=== PATIENT | male | born 2000 | race Caucasian/White ===

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

== ENCOUNTER 2023-03-09 12:40 | Inpatient (IN) | payer OTHER, SELFPAY ==
--- NOTE | 2023-03-09 | ECG_ITS ---
Test Reason : MED CLEARANCE Blood Pressure : / mmHG Vent. Rate : 073 BPM Atrial Rate : 073 BPM P-R Int : 156 ms QRS Dur : 098 ms QT Int : 388 ms P-R-T Axes : 044 047 021 degrees QTc Int : 427 ms Normal sinus rhythm T wave abnormality, consider anterior ischemia Abnormal ECG No previous ECGs available Referred By: Holden Dixon Electronically Signed By:МАРИЯ QUICK MD
--- NOTE | 2023-03-09 12:48 | MHC.CARE ---
This is an [facility] Student Safety Plan per Zainab Das, patient?s counselor with [facility] [phone] Warning Signs for increase in SI/ worsening depression:? Isolating more; difficulty leaving his dorm room; spending more time in his car, which he identifies a space place for him; low desire to communicate with friends/ partner Ways patient will work to remain Safe:? He will not keep belts/ ropes in his living spaces. He has one friend he lists.? 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 Provider does not believe he has a hx of inpatient admissions.? She does not have information pertaining to when/ where his alleged suicide attempt via hanging was.
[2023-03-09 12:50] VITALS: BP 114/68; PULSE 99; RESP 20; TEMP 37.2; O2SAT 98; BMI 25.7
--- NOTE | 2023-03-09 12:51 | ED.PSYCH ---
HPI - Psych General Chief Complaint: Psychiatric Symptoms Stated Complaint: SECTION 12 Time Seen by Provider: 03/09/23 12:43 Source: patient, EMS, RN notes reviewed and old records reviewed Mode of arrival: EMS History of Present Illness HPI Narrative: 23-year-old male with no significant PMHx presenting to ED via EMS on Section 12 from his therapist's office at [facility] for low affect and concerning statements. Per Section 12 patient made statements that he was over it and life was getting harder. Patient with 1 prior SI attempt. History limited as patient agitated and withdrawn, not forthcoming with information. Denies SI/HI at present. Reports THC use. Denies other illicit substances or EtOH. Related Data Allergies Allergy/AdvReac Type Severity Reaction Status Date / Time No Known Allergies Allergy Verified 03/09/23 12:55 Review of Systems Review of Systems: Constitutional: No Fever, No Chills, No Fatigue, No Malaise ENT/Mouth: No Ear Pain, No Nasal Congestion, No sore throat, No Rhinorrhea Cardiovascular: No Chest Pain, No SOB Respiratory: No Cough, No Dyspnea Gastrointestinal: No Nausea, No Vomiting, No Diarrhea, No Constipation, No Abdominal pain Musculoskeletal: No joint pain, No Myalgias, No Joint Swelling Skin: No Skin Lesions, No rash Neuro: No Weakness, No Headache Psych: No Anxiety/Panic, + Depression, No SI/HI/AH/VH, No Social Issues Yes all other systems are reviewed and are negative Constitutional: Constitutional: Reports as per HPI [facility] Past Medical History Attestation statement: The following information was validated with the patient. Source: old records reviewed Social History Social History Advance Directives: No Physical Exam Vital Signs: Vital Signs: Last Vital Signs Temp 99.0 F 03/09/23 12:50 Pulse 99 03/09/23 12:50 Resp 20 03/09/23 12:50 BP 114/68 03/09/23 12:50 Pulse Ox 98 03/09/23 12:50 O2 Del Method Room Air 03/09/23 12:50 BMI result Body Mass Index 25.7 Const: Other: Agitated, pacing, withdrawn General: no acute distress and alert Orientation/consciousness: patient oriented x3 Limitations: no limitations HEENT: Head: Yes normal to inspection and Yes atraumatic Ears: hearing grossly normal bilaterally General nose exam: Normal external nose present Face and sinus: Yes normal facial exam Eyes: General: appearance normal, both eyes and all related structures EOM: EOMs intact bilaterally Neck: Neck: Yes normal visual inspection and Yes no meningeal signs Resp: Effort & Inspection: normal respiratory effort and no respiratory distress Auscultation: clear to auscultation bilaterally Cardio: Rate: regular rate Heart sounds: S1 normal heart sound present and S2 normal heart sound present GI: Inspection: Yes normal to inspection Palpation (GI): Soft to palpation, nontender, no guarding and not rigid Skin: Rashes: no rashes Wounds: no wounds Neuro: General: patient oriented x3, tone normal, moves all extremities, no meningeal signs and CN's II-XI intact bilaterally Cranial nerves: Yes CN's II-XII intact bilaterally Gait exam (Neuro): Normal gait present Extrem: General: Yes normal to inspection Psych: Affect: Hostile affect present Attitude: Guarded attititude/behavior present and Refuses to answer (attititude/behavior) Course Course Course Narrative: 1425--labs reassuring. UA negative. Tox screen positive for THC -COVID and flu negative -patient medically cleared for care team evaluation. Physician observation initiated at 14:26 -1630--[facility] eval Medical Decision Making Medical Decision Making [facility] Narrative: 23-year-old male with no significant PMHx presenting to ED via EMS on Section 12 from his therapist's office at [facility] for low affect and concerning statements. On exam vital signs stable, NAD, nontoxic appearing, agitated/withdrawn, not forthcoming with information. Denies SI/HI at present. Concern for SI vs metabolic/organic causes vs substance abuse. Plan: Labs, tox screen, CARE team consult Please refer to course for remaining clinical decision making, interpretation of labs/imaging results, and discussions with consultants and/or family members. Differential Diagnosis Differential Diagnoses: The differential diagnosis associated with the presentation includes As above Admission/Observation Consideration of admission/observation: Escalation of care including admission/observation considered Consult Healthcare Provider Management of the patient was discussed with: Behavioral Health Provider Lab Data [facility] Lab Attestation statement: I reviewed the patient's lab results. 03/09/23 13:30 03/09/23 13:30 Labs: Lab Results 03/09/23 03/09/23 Range/Units 13:27 13:30 WBC 5.7 (4.8-10.8) X10*3/uL RBC 5.10 (4.60-5.80) X10*6/uL Hgb 15.0 (14.0-18.0) g/dl Hct 44.5 (42.0-52.0) % MCV 87.3 (80.0-98.0) fL MCH 29.4 (27.0-33.0) pg MCHC 33.7 (31.0-36.0) g/dl RDW 12.5 (11.0-16.0) % Plt Count 281 (160-400) X10*3/uL MPV 7.9 L (9.4-12.4) fL Immature Gran % (Auto) 1.1 H (0.0-0.4) % Neut % (Auto) 47.7 (45-73) % Lymph % (Auto) 43.8 H (20-40) % [place] % (Auto) 4.4 (2-11) % Eos % (Auto) 2.6 (0-4) % Baso % (Auto) 0.4 (0-2) % Lymph # (Auto) 2.5 (1.2-4.9) X10*3/uL [place] # (Auto) 0.3 (0.1-1.2) X10*3/uL Eos # (Auto) 0.2 (0.0-0.4) X10*3/uL Baso # (Auto) 0.0 (0.0-0.2) X10*3/uL Abs Immat Gran (auto) 0.06 H (0.00-0.03) X10*3/uL Absolute Neuts (auto) 2.7 (2.0-8.3) x10*3/uL Absolute Nucleated RBC 0.000 (0.0-0.012) X10*3/uL Nucleated RBC % (auto) 0.0 (0.0-0.2) /100WBC Smear Tech's Comments VERIFIED Sodium 141 (135-145) mmol/L Potassium 3.6 (3.3-5.1) mmol/L Chloride 103 (96-108) mmol/L Carbon Dioxide 30 H (22-29) mmol/L Anion Gap 12 (12-20) BUN 14 (9-16) mg/dL Creatinine 1.07 (0.5-1.4) mg/dL Estim Creat Clear Calc 87.8 Estimated GFR > 60 Random Glucose 102 (60-115) mg/dL Calcium 9.6 (8.4-10.2) mg/dL Magnesium 2.1 (1.6-2.6) mg/dL Total Bilirubin 0.2 (0.0-1.0) mg/dL Direct Bilirubin < 0.2 (0.0-0.5) mg/dL AST 35 (5-37) U/L ALT 29 (0-40) U/L Alkaline Phosphatase 51 (39-117) U/L Total Protein 7.7 (6.5-8.0) g/dL Albumin 4.1 (3.5-5.0) g/dL Urine Color Yellow Urine Appearance Cloudy Urine pH 6.5 (5.0-9.0) Ur Specific [place] 1.020 (1.005-1.025) Urine Protein Negative (Neg-Trace) mg/dL Urine Glucose (UA) Negative (Negative) mg/dL Urine Ketones Negative (Negative) mg/dL Urine Blood Negative (Negative) Urine Nitrite Negative (Negative) Ur Leukocyte Esterase Negative (Negative) Salicylates < 5.0 L (15-30) mg/dL Urine Opiates Screen Not Detected (Not Detect) Urine Fentanyl Screen Not Detected (Not Detect) Acetaminophen < 3 (<30) mcg/mL Ur Barbiturates Screen Not Detected (Not Detect) Ur Phencyclidine Scrn Not Detected (Not Detect) Ur Amphetamines Screen Not Detected (Not Detect) U Benzodiazepines Scrn Not Detected (Not Detect) Urine Cocaine Screen Not Detected (Not Detect) U Marijuana (THC) Screen POSITIVE H (Not Detect) COVID-19 (KARSTEN) Negative (Negative) COVID-19 Clin Com See Note Influenza Type A (GREG) Negative (Negative) Influenza Type B (GREG) Negative (Negative) Influenza A & B Note See Note Independent Historian Clinical information obtained from an independent historian. History obtained from or confirmed by: EMS External Record Review External record reviewed: Inpatient record, Office record, Outpatient record, Prior outpatient labs, Prior outpatient radiology, Primary care record and Outside ED record Tests considered The following testing was considered but not selected: As above Social Determinants Patient?s care significantly limited by Social Determinants of Health including: Problems related to primary support group Discharge Plan Discharge Clinical Impression: Depression Patient Disposition: Still a Patient Interventions: [place]-Suicide Risk Severity Scale Last Done: 03/09/23 13:10
--- NOTE | 2023-03-09 13:00 | MHC.CARE ---
Zainab Das ([phone]) therapists from [employer] called, she reports student Ann Hilliard from [facility] is in route to ED for crisis assessment. . She has been treating him for over 1 year. Today he was in session and told her he felt it was time to come to the hospital. She reports patient mood has been steadily declining, his is not sleeping well, reporting suicidal ideation with plan and intent, however will not disclose plan or intent currently. Patient has a history of prior suicide attempt via hanging in his dorm 1 year ago. Patient has been isolating, missing classes, sleep routine is disrupted. Patient has been engaging in safety planning. She has requested clinical have patient sign release to fax [facility] copy of safety plan. Patient also has medication prescriber Ayanna England [phone].
--- NOTE | 2023-03-09 13:29 | PC.NURSE ---
Pt calm and cooperative with blood draw. Whatever I have to do to get out of here.
[2023-03-09 13:46] LABS: Basophils Percent Auto 0.4 % (0-2); Eosinophils Absolute Auto 0.2 X10*3/uL (0.0-0.4); Eosinophils Percent Auto 2.6 % (0-4); Hematocrit 44.5 % (42.0-52.0); Imm Gran Abs Auto 0.06 X10*3/uL (0.00-0.03); Imm Gran Pct Auto 1.1 % (0.0-0.4); Lymphocytes Absolute Auto 2.5 X10*3/uL (1.2-4.9); Lymphocytes Percent Auto 43.8 % (20-40); MANUAL DIFF FLAG SCAN; Mean Corpuscular HGB Conc 33.7 g/dl (31.0-36.0); Mean Corpuscular Hemoglobin 29.4 pg (27.0-33.0); Mean Corpuscular Volume 87.3 fL (80.0-98.0); Mean Platelet Volume 7.9 fL (9.4-12.4); Monocytes Absolute Auto 0.3 X10*3/uL (0.1-1.2); Monocytes Percent Auto 4.4 % (2-11); Neutrophils Absolute Auto 2.7 x10*3/uL (2.0-8.3); Neutrophils Percent Auto 47.7 % (45-73); Platelet Count 281 X10*3/uL (160-400); Red Cell Distribution Width 12.5 % (11.0-16.0); SCAN SMEAR FLAG 1; White Blood Count 5.7 X10*3/uL (4.8-10.8)
[2023-03-09 13:48] LABS: Appearance Urine Cloudy; Color Urine Yellow; Glucose Urine UA Negative (Negative); Leukocyte Esterase Urine Negative (Negative); Nitrite Urine Negative (Negative); PH 6.5 (5.0-9.0); Urine Blood Negative (Negative); Urine Ketones Negative (Negative); Urine Protein Negative (Neg-Trace)
[2023-03-09 13:50] LABS: Amphetamine Screen Urine Not Detected (Not Detect); Barbiturates, Urine Not Detected (Not Detect); Benzodiazepines Screen Urine Not Detected (Not Detect); Cannabinoid Screen Urine POSITIVE (Not Detect); Cocaine Screen Urine Not Detected (Not Detect); Fentanyl, urine Not Detected (Not Detect); Opiate Screen Urine Not Detected (Not Detect); Phencyclidine Screen Urine Not Detected (Not Detect)
[2023-03-09 13:55] LABS: Alanine Aminotransferase 29 U/L (0-40); Albumin Level 4.1 g/dL (3.5-5.0); Alkaline Phosphatase 51 U/L (39-117); Anion Gap 12 (12-20); Aspartate Amino Transferase 35 U/L (5-37); Bilirubin Direct < 0.2 mg/dL (0.0-0.5); Bilirubin Total 0.2 mg/dL (0.0-1.0); Blood Urea Nitrogen 14 mg/dL (9-16); Calcium 9.6 mg/dL (8.4-10.2); Carbon Dioxide 30 mmol/L (22-29); Chloride 103 mmol/L (96-108); Creatinine Clr Calc Pharmacy 87.8; Estimated Glomerular Filt Rate > 60; Glucose Random 102 mg/dL (60-115); Magnesium 2.1 mg/dL (1.6-2.6); Potassium 3.6 mmol/L (3.3-5.1); Sodium 141 mmol/L (135-145); Total Protein 7.7 g/dL (6.5-8.0)
[2023-03-09 13:59] LABS: COVID-19 Test Negative (Negative); IDNOW Serial# 16C4AD1C; IDNOW Serial# 55D5AD1C; Influenza A Negative (Negative); Influenza B2 Negative (Negative)
[2023-03-09 14:03] LABS: SLIDE REVIEW VERIFIED
[2023-03-09 14:04] LABS: Acetaminophen LAB < 3 mcg/mL (<30); Salicylate < 5.0 mg/dL (15-30)
[2023-03-09 14:57] LABS: Ethanol < 10 mg/dL
--- NOTE | 2023-03-09 15:12 | PC.NURSE ---
Pt agitated that he has not been evaluated by the CARE team yet.
[2023-03-09 16:25] VITALS: RESP 14
--- NOTE | 2023-03-09 19:23 | PC.NURSE ---
patient appears to be moderately irritable, using phone, asking about visit hours, periodically punching mattress expressing frustration seemingly regarding plan for inpatient stay.
--- NOTE | 2023-03-09 19:36 | MHC.CARE ---
Pt is an inpatient bedsearch at this time, pt is not voluntary
--- NOTE | 2023-03-09 19:47 | PC.NURSE ---
patient periodically using profance language with staff, approached about medication to help him calm down and patient declined
--- NOTE | 2023-03-09 19:53 | MHC.CARE ---
Please call [employer] consultant clinician at [facility] if there is any update or change in disposition. They are also requesting a phone call when pt is discharged to arrange and notify dorm staff. [phone] is Maria Isabel she is success[employer] consultant all weekend. Business hours please call [phone]
[2023-03-10 00:09] VITALS: RESP 20
[2023-03-10 00:43] VITALS: BMI 25.8
--- NOTE | 2023-03-10 01:02 | PC.ADMIT ---
Skip is admitted to on a CV for suicidal ideation. Per the crisis report the patient had made some concerning statements to the counselor at [facility]. saying I'm over it, life is getting hard, I'm tired, I'm done with it all. Time for me to go to the hospital The patient is very adversarial and refuses to answer most all admission questions. he refused to have his vital signs checked and was argumentative but did allow a skin check and his height and weight to be obtained. He denies suicidal ideation and stated that he is here because of bureaucracy, he does acknowledge that he made some statements to the counselor. this is stupid. Nobody really cares about my medical problems they just think everything is always about mental health. I'm here until Sunday anyway so it doesn't matter Skip refused to sign any admission documents, nor did he sign any consents. Patient became angry when he learned that he is not in a privet room. I'm not sleeping in here, I'm not sleeping in a room with another person Patient allowed to sleep in a side room.
[2023-03-10 08:43] LABS: Estimated Average Glucose 105 mg/dL; Hemoglobin A1c % 5.3 % (<6.0)
[2023-03-10 08:57] LABS: Alanine Aminotransferase 31 U/L (0-40); Albumin Level 4.2 g/dL (3.5-5.0); Alkaline Phosphatase 51 U/L (39-117); Anion Gap 14 (12-20); Aspartate Amino Transferase 42 U/L (5-37); Bilirubin Total 0.5 mg/dL (0.0-1.0); Blood Urea Nitrogen 13 mg/dL (9-16); Calcium 9.9 mg/dL (8.4-10.2); Carbon Dioxide 28 mmol/L (22-29); Chloride 103 mmol/L (96-108); Cholesterol 169 mg/dL (<200); Creatinine Clr Calc Pharmacy 75.8; Estimated Glomerular Filt Rate > 60; Glucose Fasting 91 mg/dL (60-99); HDL Cholesterol 32 mg/dL (>40); LDL Cholesterol Calculated 122 mg/dL (<100); Potassium 5.3 mmol/L (3.3-5.1); Sodium 140 mmol/L (135-145); Total Protein 8.4 g/dL (6.5-8.0); Triglycerides 79 mg/dL (<150)
[2023-03-10 09:10] VITALS: RESP 18
[2023-03-10 09:13] LABS: Free T4 (Free Thyroxine) 1.08 ng/dL (0.71-1.85); Thyroid Stimulating Hormone 0.49 uIU/mL (0.32-4.0)
[2023-03-10 09:25] LABS: Vitamin B12 1430 pg/mL (200-900)
--- NOTE | 2023-03-10 09:42 | HO.PSYADMNOT ---
HPI Date of Service: 03/10/23 Chief Complaint: SI HPI Narrative: per CARE team sonia, pt was sent by [facility] after making statements dewayne to, i am over it, life is getting hard. i am tired, i'm done with it all. time for me to go to the hospital. staff suggested he come inpatient and he agreed to be transported to the hospital. once in the ED he declined voluntary admission. per collateral from [facility] counseling pt has a h/o one suicide attempt about a year ago via hanging. he has been considered high risk since and has been intermittently expressing SI at counseling sessions. reportedly his SI has been worse in recent weeks, and his behavior on day of admission was sufficiently uncharacteristic so as provoke staff to recommend hospitalization. on interview with MD on unit, pt is angry and asking for discharge. he states he feels imprisoned and the environment is nothing like he imagined it would be. feels it would be more harmful for him to remain in the hospital than to discharge. denies SI presently, very future-oriented regarding schooling, career plans, friends and girlfriend. discuss his suicide attempt of around a year ago, pt states at the time he was feeling low in self-confidence, struggling with severe acne, his grandmother had just , and his uncle had also recently passed. he states it was a low period. 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 on being confronted that he has acknowledged depressed mood in spite of all of this apparent success, he states that he has been having a lot of anxiety about the future, which has been weighing on him. discusses situation with pt's mother, who was not aware of SA last year but nevertheless strongly advocates for pt to be discharged and states she has no concerns that he is an imminent risk of suicide. she reported that either she or her would be flying out to be with him [place], and she supported that he may need to stay in a hotel until the workweek when things with the school might be addressed. Past Psychiatric History: hosp: denies prior SA: 1 prior about 1 year ago, in single dorm room, via hanging, with jump rope tied off on exposed pipes SIB: denies outpt: has had about 1 year of therapy at the [facility]. was Rxed meds but did not take them. 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 only child raised in single household with mother and father. Substance History: reports using cannabis only, denies use of any other drugs incl tobacco/nicotine, alcohol, or other. states he uses cannabis on weekends only. Diagnostics Vital Signs (24Hr): Vital Signs - 24 hr 03/09/23 12:50 03/09/23 16:25 03/10/23 00:09 Temperature 99.0 F Pulse Rate 99 Respiratory Rate 20 14 20 Blood Pressure 114/68 Pulse Oximetry 98 Oxygen Delivery Method Room Air 03/10/23 09:10 Temperature Pulse Rate Respiratory Rate 18 Blood Pressure Pulse Oximetry Oxygen Delivery Method BMI result Body Mass Index 25.8 Labs 03/09/23 13:30 03/10/23 08:21 Labs: Laboratory Results - last 48 hr 03/09/23 03/09/23 03/10/23 13:27 13:30 08:21 WBC 5.7 RBC 5.10 Hgb 15.0 Hct 44.5 MCV 87.3 MCH 29.4 MCHC 33.7 RDW 12.5 Plt Count 281 MPV 7.9 L Immature Gran % (Auto) 1.1 H Neut % (Auto) 47.7 Lymph % (Auto) 43.8 H [place] % (Auto) 4.4 Eos % (Auto) 2.6 Baso % (Auto) 0.4 Lymph # (Auto) 2.5 [place] # (Auto) 0.3 Eos # (Auto) 0.2 Baso # (Auto) 0.0 Abs Immat Gran (auto) 0.06 H Absolute Neuts (auto) 2.7 Absolute Nucleated RBC 0.000 Nucleated RBC % (auto) 0.0 Smear Tech's Comments VERIFIED Sodium 141 140 Potassium 3.6 5.3 H D Chloride 103 103 Carbon Dioxide 30 H 28 Anion Gap 12 14 BUN 14 13 Creatinine 1.07 1.24 Estim Creat Clear Calc 87.8 75.8 Estimated GFR > 60 > 60 Random Glucose 102 Fasting Glucose 91 Estimat Average Glucose 105 Hemoglobin A1c % 5.3 Calcium 9.6 9.9 Magnesium 2.1 Total Bilirubin 0.2 0.5 Direct Bilirubin < 0.2 AST 35 42 H ALT 29 31 Alkaline Phosphatase 51 51 Total Protein 7.7 8.4 H Albumin 4.1 4.2 Triglycerides 79 Cholesterol 169 LDL Cholesterol, Calc 122 H HDL Cholesterol 32 L Vitamin B12 1430 H Folate 13.0 TSH 0.49 Free T4 1.08 Urine Color Yellow Urine Appearance Cloudy Urine pH 6.5 Ur Specific [place] 1.020 Urine Protein Negative Urine Glucose (UA) Negative Urine Ketones Negative Urine Blood Negative Urine Nitrite Negative Ur Leukocyte Esterase Negative Salicylates < 5.0 L Urine Opiates Screen Not Detected Urine Fentanyl Screen Not Detected Acetaminophen < 3 Ur Barbiturates Screen Not Detected Ur Phencyclidine Scrn Not Detected Ur Amphetamines Screen Not Detected U Benzodiazepines Scrn Not Detected Urine Cocaine Screen Not Detected U Marijuana (THC) Screen POSITIVE H Ethyl Alcohol < 10 COVID-19 (KARSTEN) Negative COVID-19 Clin Com See Note Influenza Type A (GREG) Negative Influenza Type B (GREG) Negative Influenza A & B Note See Note Meds/Allergies Meds Home Medications Medication Instructions Recorded Confirmed Type beclomethasone dipropionate 80 2 inh inhalation BID 03/10/23 03/10/23 History mcg/actuation HFA breath activated aerosol (Qvar RediHaler) Allergies Allergies Allergy/AdvReac Type Severity Reaction Status Date / Time No Known Allergies Allergy Verified 03/09/23 12:55 Mental Status Exam Mental Status Exam Narrative: adequately dressed and groomed AA male, earrings. generally cooperative. no PMA/PMR. speech incr rate, amount, loudness. thoughts linear and logical. affect hyper-intense, non-labile. mood livid. denies SI/SIBI/HI/AVH. Assessment & Plan Assessment & Plan (1) Suicidal ideation: Status: Acute Code(s): R45.851 - Suicidal ideations (2) Depression: Status: Acute Code(s): F32.A - Depression, unspecified Plan pt is future oriented, does not wish to be in the hospital, and did not exhibit sufficiently concerning recent behaviors so as to warrant involuntary hospitalization. he is to be discharged to self care. he has involved parents and friends. he has an appointment with his mental health counselor on sunday. Patient educated on: therapeutic strategies Reason for continued inpatient stay Substantial Risk for: stable for discharge Statement Statement: I have reviewed the history and physical and performed a pertinent examination on my patient. No changes have occurred unless specified. If the History and Physical was not performed prior to admission, the Hospitalist's service will be consulted for completing the admission physical. Time Spent With Patient Time: Total time managing care of this patient today __75__ minutes.
[2023-03-10 10:50] VITALS: BP 128/57; PULSE 106; RESP 8; TEMP 36.7; O2SAT 97
--- NOTE | 2023-03-10 10:51 | ECG_ITS ---
Test Reason : chest discomfort Blood Pressure : / mmHG Vent. Rate : 090 BPM Atrial Rate : 090 BPM P-R Int : 142 ms QRS Dur : 096 ms QT Int : 364 ms P-R-T Axes : 076 054 024 degrees QTc Int : 445 ms Normal sinus rhythm Normal ECG When compared with ECG of 09-MAR-2023 20:11, No significant change was found Referred By: Sha Barnhart Electronically Signed By:МАРИЯ QUICK MD
--- NOTE | 2023-03-10 11:24 | PC.NURSE ---
Pt reported chest discomfort radiating to R shoulder and R chest. Pt has elevated K+ level, 5.3, from day prior, 3.6. Pt also had abnormal EKG in ED showing potential RBBB and T wave abnormality. Vital signs; 98.1 106 18 97% 125/57 RA Sitting. Kei Barnhart MD notified and EKG ordered.
--- NOTE | 2023-03-10 17:36 | PM.PSYDC ---
DS: Providers Provider Date of Service: 03/10/23 Date of admission: 03/09/23 22:04 Primary care physician: Unknown Physician DS: Medications Discharge Medications Home Medications: Home Medications Medication Instructions Recorded Confirmed beclomethasone dipropionate 80 2 inh inhalation BID 03/10/23 03/10/23 mcg/actuation HFA breath activated aerosol (Qvar RediHaler) Mental Status Exam Mental Status Exam Narrative: adequately dressed and groomed AA male, earrings. generally cooperative. no PMA/PMR. speech incr rate, amount, loudness. thoughts linear and logical. affect hyper-intense, non-labile. mood livid. denies SI/SIBI/HI/AVH. Data Data Completed and Pending Completed studies during hospitalization [Text1]: 03/09/23 03/09/23 03/10/23 13:27 13:30 08:21 WBC 5.7 RBC 5.10 Hgb 15.0 Hct 44.5 MCV 87.3 MCH 29.4 MCHC 33.7 RDW 12.5 Plt Count 281 MPV 7.9 L Immature Gran % (Auto) 1.1 H Neut % (Auto) 47.7 Lymph % (Auto) 43.8 H Bonner % (Auto) 4.4 Eos % (Auto) 2.6 Baso % (Auto) 0.4 Lymph # (Auto) 2.5 Bonner # (Auto) 0.3 Eos # (Auto) 0.2 Baso # (Auto) 0.0 Abs Immat Gran (auto) 0.06 H Absolute Neuts (auto) 2.7 Absolute Nucleated RBC 0.000 Nucleated RBC % (auto) 0.0 Smear Tech's Comments VERIFIED Sodium 141 140 Potassium 3.6 5.3 H D Chloride 103 103 Carbon Dioxide 30 H 28 Anion Gap 12 14 BUN 14 13 Creatinine 1.07 1.24 Estim Creat Clear Calc 87.8 75.8 Estimated GFR > 60 > 60 Random Glucose 102 Fasting Glucose 91 Estimat Average Glucose 105 Hemoglobin A1c % 5.3 Calcium 9.6 9.9 Magnesium 2.1 Total Bilirubin 0.2 0.5 Direct Bilirubin < 0.2 AST 35 42 H ALT 29 31 Alkaline Phosphatase 51 51 Total Protein 7.7 8.4 H Albumin 4.1 4.2 Triglycerides 79 Cholesterol 169 LDL Cholesterol, Calc 122 H HDL Cholesterol 32 L Vitamin B12 1430 H Folate 13.0 TSH 0.49 Free T4 1.08 Urine Color Yellow Urine Appearance Cloudy Urine pH 6.5 Ur Specific [place] 1.020 Urine Protein Negative Urine Glucose (UA) Negative Urine Ketones Negative Urine Blood Negative Urine Nitrite Negative Ur Leukocyte Esterase Negative Salicylates < 5.0 L Urine Opiates Screen Not Detected Urine Fentanyl Screen Not Detected Acetaminophen < 3 Ur Barbiturates Screen Not Detected Ur Phencyclidine Scrn Not Detected Ur Amphetamines Screen Not Detected U Benzodiazepines Scrn Not Detected Urine Cocaine Screen Not Detected U Marijuana (THC) Screen POSITIVE H Ethyl Alcohol < 10 COVID-19 (KARSTEN) Negative COVID-19 Clin Com See Note Influenza Type A (GREG) Negative Influenza Type B (GREG) Negative Influenza A & B Note See Note DS: Summary Hospital Course Hospital Course: per CARE team sonia pt was sent by [facility] after making statements dewayne to, i am over it, life is getting hard. i am tired, i'm done with it all. time for me to go to the hospital. staff suggested he come inpatient and he agreed to be transported to the hospital. once in the ED he declined voluntary admission. per collateral from [facility] counseling pt has a h/o one suicide attempt about a year ago via hanging. he has been considered high risk since and has been intermittently expressing SI at counseling sessions. reportedly his SI has been worse in recent weeks, and his behavior on day of admission was sufficiently uncharacteristic so as provoke staff to recommend hospitalization. on interview with MD on unit, pt is angry and asking for discharge. he states he feels imprisoned and the environment is nothing like he imagined it would be. feels it would be more harmful for him to remain in the hospital than to discharge. denies SI presently, very future-oriented regarding schooling, career plans, friends and girlfriend. discuss his suicide attempt of around a year ago, pt states at the time he was feeling low in self-confidence, struggling with severe acne, his grandmother had just , and his uncle had also recently passed. he states it was a low period. 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 on being confronted that he has acknowledged depressed mood in spite of all of this apparent success, he states that he has been having a lot of anxiety about the future, which has been weighing on him. discusses situation with pt's mother, who was not aware of SA last year but nevertheless strongly advocates for pt to be discharged and states she has no concerns that he is an imminent risk of suicide. she reported that either she or her would be flying out to be with him [place], and she supported that he may need to stay in a hotel until the workweek when things with the school might be addressed. Past Psychiatric History: hosp: denies prior SA: 1 prior about 1 year ago, in single dorm room, via hanging, with jump rope tied off on exposed pipes SIB: denies outpt: has had about 1 year of therapy at the [facility]. was Rxed meds but did not take them. Medical Evaluation Reviewed: Yes PMF Narrative: asthma Family History: denies Social History: 23 yo hernan at [facility], from [place]. only child raised in single household with mother and father. Substance History: reports using cannabis only, denies use of any other drugs incl tobacco/nicotine, alcohol, or other. states he uses cannabis on weekends only. Assessment & Plan (1) Suicidal ideation: Status: Acute Code(s): R45.851 - Suicidal ideations (2) Depression: Status: Acute Code(s): F32.A - Depression, unspecified Plan pt is future oriented, does not wish to be in the hospital, and did not exhibit sufficiently concerning recent behaviors so as to warrant involuntary hospitalization. he is to be discharged to self care. he has involved parents and friends. he has an appointment with his mental health counselor on sunday. Time Spent with Patient Time attestation: Total time managing care of this patient today ____ minutes. Time spent: Greater than 30 minutes Discharge Plan Discharge Anticipated Discharge Date/Time: 03/10/23 17:34 Patient Disposition: Home, Self-Care Discharge Diagnosis: Depressive Disorder NOS Referrals: [facility] [Other] - 1 Week (If you need a primary care provider, please call the above number. ) Discharge Medications: Continued Qvar RediHaler 80 mcg/actuation HFA aerosol breath activated 2 inh inhalation BID Discontinued penicillin V potassium 500 mg tablet 500 mg PO BID Discharge Orders: Discharge Order (Routine); Ordered 03/10/23 Ordered By: Sha Barnhart Diet: Advance to usual diet Activity on Discharge: As tolerated Stand Alone Forms: Patient Portal Discharge page, Community Support Care Plan Goals: remain safe and stable in the outpatient treatment setting Health Concerns: none Plan of Treatment: take medications as prescribed, attend appointments as scheduled Assessment: not at imminent risk of harm to self or others Discharge Date/Time: 03/10/23 18:39
== END 2023-03-10 18:39 | disposition home or self-care (01) | DRG 881 ==
LOC: HO.ED 14:26 → HO.PADLT16 23:28
PROVIDERS: Physician Assistant; Admitting Provider Psychiatry & Neurology Psychiatry; Emergency Provider Emergency Medicine Emergency Medical Services; Visit Provider Psychiatry & Neurology Psychiatry
DX: F32.A Depression, unspecified (principal); R45.851 Suicidal ideations; Z20.822 Contact with and (suspected) exposure to COVID-19; Z91.51 Personal history of suicidal behavior; Z91.148 Patient's other noncompliance with medication regimen for other reason
CPT/HCPCS: 36415; 80048; 80053; 80061; 80076; 80143; 80179; 80307; 81003; 82607; 82746; 83036; 83735; 84439; 84443; 85025; 87502; 87635; 93005; 99285; S9485

== ENCOUNTER → 2023-03-09 20:11 | Outpatient (BNV) | payer OTHER, SELFPAY | PROVIDERS: Admitting Provider Psychiatry & Neurology Psychiatry; Emergency Provider Emergency Medicine Emergency Medical Services; Visit Provider Internal Medicine Cardiovascular Disease | DX: R94.31 Abnormal electrocardiogram [ECG] [EKG] (principal) | CPT/HCPCS: 93010 ==

== ENCOUNTER 2023-03-09 22:04 | Outpatient (BNV) | payer OTHER, SELFPAY | END 2023-03-10 10:51 | PROVIDERS: Admitting Provider Psychiatry & Neurology Psychiatry; Emergency Provider Emergency Medicine Emergency Medical Services; Visit Provider Internal Medicine Cardiovascular Disease | DX: R94.31 Abnormal electrocardiogram [ECG] [EKG] (principal) | CPT/HCPCS: 93010 ==

== ENCOUNTER → 2023-03-09 22:04 | Outpatient (BNV) | payer OTHER, SELFPAY | PROVIDERS: Admitting Provider Psychiatry & Neurology Psychiatry; Emergency Provider Emergency Medicine Emergency Medical Services; Visit Provider Psychiatry & Neurology Psychiatry | DX: F33.2 Major depressive disorder, recurrent severe without psychotic features (principal); R45.851 Suicidal ideations | CPT/HCPCS: 99236; 99499 ==

== ENCOUNTER 2023-11-10 00:20 | Emergency (ER) | payer OTHER, SELFPAY ==
--- NOTE | 2023-11-10 | ECG_ITS ---
Test Reason : chest tightness Blood Pressure : / mmHG Vent. Rate : 119 BPM Atrial Rate : 119 BPM P-R Int : 128 ms QRS Dur : 086 ms QT Int : 306 ms P-R-T Axes : 082 067 -06 degrees QTc Int : 430 ms Sinus tachycardia Possible Left atrial enlargement T wave abnormality, consider inferior ischemia Abnormal ECG When compared with ECG of 10-MAR-2023 10:57, Nonspecific T wave abnormality now evident in Lateral leads Heart rate has increased Referred By: Generic ED Physician Electronically Signed By:LEAH CLARK
--- NOTE | ~2023-11-10 | XR_ITS ---
EXAMINATION: XR CHEST CLINICAL INFORMATION: Dyspnea COMPARISON: None available. TECHNIQUE: Frontal view of the chest was obtained. FINDINGS: Normal appearance of the cardiomediastinal structures. No effusions or pneumothoraces. No focal pulmonary consolidation. Normal pattern of pulmonary vasculature. No skeletal abnormalities noted. XR/XR chest 1V IMPRESSION: No acute cardiopulmonary abnormalities. Electronically signed by: Micah Martinez MD 11/10/2023 02:11 AM EDT
[2023-11-10 00:30] VITALS: BP 104/58; PULSE 129; RESP 20; TEMP 37.6; O2SAT 96; BMI 25.9
[2023-11-10 01:18] LABS: IDNOW Serial# 6674DD1D; Strep A Nucleic Acid Negative (Negative)
[2023-11-10 01:25] LABS: Influenza A PCR NEGATIVE (Negative); Influenza B PCR NEGATIVE (Negative); Resp Syncy Virus RNA Qual PCR NEGATIVE (Negative); SARS COV2 PCR INHOUSE NEGATIVE (Negative)
[2023-11-10 03:58] VITALS: O2SAT 96
== END 2023-11-10 03:59 | disposition left against medical advice (07) ==
PROVIDERS: Emergency Provider Emergency Medicine
DX: R06.2 Wheezing (principal); R50.9 Fever, unspecified; Z03.818 Encounter for observation for suspected exposure to other biological agents ruled out; R06.00 Dyspnea, unspecified; R05.9 Cough, unspecified; Z53.21 Procedure and treatment not carried out due to patient leaving prior to being seen by health care provider
CPT/HCPCS: 0241U; 71045; 87651; 93005; 99281; 99285